=== PATIENT | male | born 1980 | race Two or more races ===

== ENCOUNTER → 2017-02-20 | Emergency (ER) | payer OTHER ==
[~2017-02-20] VITALS: Ht 177.8 cm; Wt 90.7 kg
--- NOTE | 2017-02-20 13:55 | Emergency Room Report ---
History of Present Illness General Chief Complaint: General Complaint Source: Patient Present Illness HPI 36 y/o male c/o medication refill. States he takes methadone, unaware of the dosage, through a clinic in [place]. States he missed the bus yesterday and the day prior and was not able to get his treatment. States he forgot his paper on the bus yesterday as well so he does not have any available dosage available. States he's detoxing from heroin and is starting to feel anxious from withdrawals. Denies any n/v/f/c, seizures, SMITH, convusions, SI, HI, AH or VH. Allergies: Coded Allergies: No Known Allergies (Unverified , 02/20/17) Patient History Past Medical History: see triage record Past Surgical History: none Pertinent Family History: none Immunizations: UTD Reviewed Nursing Documentation: PMH: Agreed, PSxH: Agreed Nursing Documentation-PMH Hx Hypertension: Yes History Of Psychiatric Problem: Yes - PTSD; heroin abuse Review of Systems All Other Systems: negative except mentioned in HPI Physical Exam Vital Signs Date Time Temp Pulse Resp B/P Pulse Ox O2 Delivery O2 Flow Rate FiO2 02/20/17 13:29 80 18 134/88 100 Room Air Sp02 EP Interpretation: reviewed, normal General Appearance: no apparent distress, alert, GCS 15, non-toxic ENT: normal ENT inspection Respiratory: chest non-tender, lungs clear, normal breath sounds, speaking full sentences Cardiovascular #1: regular rate, rhythm, no edema Musculoskeletal: normal inspection Neurologic: alert, oriented x3, responsive, motor strength/tone normal, sensory intact, speech normal Psychiatric: judgement/insight normal, memory normal, mood/affect normal, no suicidal/homicidal ideation Skin: normal inspection Medical Decision Making PA Attestation Dr. Stiles is my supervising physician with whom patient management has been discussed with. Diagnostic Impression: Primary Impression: Opioid dependence on agonist therapy Additional Impression: History of heroin abuse ER Course Pt. presents to the ED c/o med refill Ddx considered but are not limited to withdrawals, seizure, med refill Vital signs: are WNL, pt. is afebrile H&PE are most consistent with med refill ORDERS: none required at this time, the diagnosis is clinical ED INTERVENTIONS: Methadone 20mg PO (after speaking with Dr. Stiles) DISCHARGE: At this time pt. is stable for d/c to home. Will provide printed patient care instructions, and any necessary prescriptions. Care plan and follow up instructions have been discussed with the patient prior to discharge. Last Vital Signs Date Time Temp Pulse Resp B/P Pulse Ox O2 Delivery O2 Flow Rate FiO2 02/20/17 13:29 80 18 134/88 100 Room Air Disposition: HOME, SELF-CARE Condition: Stable Patient Instructions: Methadone tablets, Opioid Withdrawal Additional Instructions: Patient advised to follow up with regular clinic for continued management of opioid use. Return to ER as needed. GILL RANDLE Feb 20, 2017 13:55
[2017-02-20 14:11] VITALS: BP 132/86
== END | disposition home or self-care (01) ==
LOC: EDBD 13:31 → EDSEX 13:31 → EMR 13:40
DX: F11.20 Opioid dependence, uncomplicated (principal); I10 Essential (primary) hypertension
CPT/HCPCS: 99283

== ENCOUNTER 2017-04-10 14:02 | Emergency (ER) | payer MEDICAID, OTHER ==
[~2017-04-10] VITALS: Ht 177.8 cm; Wt 93.4 kg
[2017-04-10 14:24] VITALS: BP 145/86
[2017-04-10 14:37] VITALS: BP 145/86
[2017-04-10] MEDS ORDERED: ABILIFY15 MG ORAL (14:40)
[2017-04-10] MEDS ORDERED: NORCO 10-325 T1 EACH ORAL (14:40)
--- NOTE | 2017-04-10 14:44 | Emergency Room Report ---
History of Present Illness General Chief Complaint: Medication Refill Source: Patient Present Illness HPI 37 y/o male c/o medication refill. States he has been 3 days without his medications and is going through withdrawal. States that he was not able to make it to the pain / addiction medicine clinic for his methadone and that he had passed out from his sxs and walked over here. States that he has Rx for abilify at home in [place] but is unable to get home to take it. States he takes medication with good compliance w/o AE with control of sxs. No SI, HI, AH or VH. Allergies: Coded Allergies: No Known Allergies (Unverified , 02/20/17) Patient History Past Medical History: see triage record Past Surgical History: none Pertinent Family History: none Reviewed Nursing Documentation: PMH: Agreed, PSxH: Agreed Nursing Documentation-PMH Past Medical History: No History, Except For Hx Hypertension: Yes Hx Diabetes: Yes History Of Psychiatric Problem: Yes Review of Systems All Other Systems: negative except mentioned in HPI Physical Exam Vital Signs Date Time Temp Pulse Resp B/P Pulse Ox O2 Delivery O2 Flow Rate FiO2 04/10/17 14:11 97.3 100 18 145/86 98 Room Air Sp02 EP Interpretation: reviewed, normal General Appearance: no apparent distress, alert, GCS 15, non-toxic Head: normocephalic, atraumatic Eyes: bilateral eye PERRL, bilateral eye normal inspection ENT: normal ENT inspection Respiratory: chest non-tender, lungs clear, normal breath sounds, speaking full sentences Cardiovascular #1: regular rate, rhythm, no edema Musculoskeletal: gait/station normal Neurologic: alert, oriented x3, responsive, motor strength/tone normal, sensory intact, speech normal Psychiatric: judgement/insight normal, memory normal, no suicidal/homicidal ideation, anxious Skin: normal color, no rash, warm/dry, well hydrated Medical Decision Making PA Attestation Dr. Swartz is my supervising physician with whom patient management has been discussed with. Diagnostic Impression: Primary Impression: Opioid dependence on agonist therapy Additional Impression: History of heroin abuse ER Course Pt. presents to the ED c/o med refill for opioid withdrawal Ddx considered but are not limited to aberrant behavior, opioid dependence, withdrawal, SI, HI, delusion Vital signs: are WNL, pt. is afebrile H&PE are most consistent with med refill for chronic opioid use with hx of heroin abuse. ORDERS: none required at this time, the diagnosis is clinical ED INTERVENTIONS: [place] 10 PO. DISCHARGE: At this time pt. is stable for d/c to home. Will provide printed patient care instructions, and any necessary prescriptions. Care plan and follow up instructions have been discussed with the patient prior to discharge. Chest X-Ray Diagnostic Results Chest X-Ray Ordered: No Last Vital Signs Date Time Temp Pulse Resp B/P Pulse Ox O2 Delivery O2 Flow Rate FiO2 04/10/17 14:24 97.3 98 18 145/86 98 Room Air Disposition: HOME, SELF-CARE Condition: Stable Scripts Aripiprazole* (ABILIFY*) 15 Mg Tablet 15 MG ORAL DAILY for 7 Days, #7 TAB 0 Refills Prov: GILL RANDLE 04/10/17 Hydrocodone Bit/Acetaminophen 10-325* (NORCO 10-325*) 1 Each Tablet 1 TAB ORAL Q8H Y for For Pain, #3 TAB 0 Refills PRN PAIN Prov: GILL RANDLE 04/10/17 Patient Instructions: Finding Treatment for Addiction, Medicine Refill at the Emergency Department Additional Instructions: Patient advised to follow up with addiction clinic tomorrow. Advised patient to take ER discharge paperwork with him to show there is no aberrant behavior for the patient and that he is here requesting treatment for opioid withdrawal due to not being able to make it to the clinic on time. Patient informed to call a nurse or doctor, call for an ambulance or go to the ER immediately if they feel like they want to hurt or kill themselves or other people. Patient informed of national suicide prevention lifeline on the back of their insurance card and to use that if any emotional compromise is encountered. GILL RANDLE Apr 10, 2017 14:44
[2017-04-10] MEDS ORDERED: Norco 10mg/325mg tab ORAL ONE (15:00)
== END 2017-04-10 14:30 | disposition home or self-care (01) ==
LOC: EMR 14:25
DX: F11.21 Opioid dependence, in remission (principal); I10 Essential (primary) hypertension; E11.9 Type 2 diabetes mellitus without complications
CPT/HCPCS: 99284